=== PATIENT | female | born 1955 | race Caucasian/White ===

== ENCOUNTER → 2018-01-09 | Outpatient (CLI) | payer BC ==
[2018-01-09 11:29] LABS: Basophils % (A) 1 %; Eosinophils # (A) 0.2 k/uL (0-0.7); Eosinophils % (A) 2 %; HCT 43.2 % (34.0-46.0); HGB 14.2 gm/dL (11.4-16.0); Lymphocytes % (A) 14 %; MCH 29.8 pg (25.0-35.0); MCHC 32.9 g/dL (31.0-37.0); MCV 90.7 fL (80.0-100.0); Mean Platelet Volume 6.7; Monocytes # (A) 0.4 k/uL (0-1.0); Monocytes % (A) 6 %; Neutrophils # (A) 5.6 k/uL (1.3-7.7); Neutrophils % (A) 76 %; Platelet Count 266 k/uL (150-450); RBC 4.77 m/uL (3.80-5.40); RDW 12.9 % (11.5-15.5); WBC 7.3 k/uL (3.8-10.6)
[2018-01-09 11:50] LABS: Albumin 4.1 g/dL (3.5-5.0); Calcium 9.8 mg/dL (8.4-10.2); Potassium 4.6 mmol/L (3.5-5.1); Total Bilirubin 0.6 mg/dL (0.2-1.3); Total Protein 6.8 g/dL (6.3-8.2)
== END | disposition home or self-care (01) ==
LOC: LABWHC1 09:24
PROVIDERS: ATTEND Nurse Practitioner Family
DX: E78.2 Mixed hyperlipidemia (principal); Z13.0 Encounter for screening for diseases of the blood and blood-forming organs and certain disorders involving the immune mechanism; Z13.29 Encounter for screening for other suspected endocrine disorder
CPT/HCPCS: 36415; 80053; 80061; 84443; 85025

== ENCOUNTER → 2018-01-31 | Outpatient (CLI) | payer BC ==
--- NOTE | 2018-02-01 12:22 | MM ---
Reason for exam: screening (asymptomatic). Last mammogram was performed 1 year ago. History: Patient is postmenopausal. Family history of breast cancer in maternal grandmother at age 80 and breast cancer in sister at age 46. Benign excisional biopsy of the left breast, May 13, 1999. Took estrogen for 1 year beginning at age 53. Took progesterone for 1 year beginning at age 53. Physical Findings: A clinical breast exam by your physician is recommended on an annual basis and results should be correlated with mammographic findings. MG Screening Mammo w CAD Bilateral CC and MLO view(s) were taken. Prior study comparison: January 24, 2017, bilateral MG screening mammo w CAD. January 07, 2016, bilateral MG 3d screening mammo w/cad. The breast tissue is heterogeneously dense. This may lower the sensitivity of mammography. Benign calcifications in the right breast. No suspicious abnormality. No significant changes when compared with prior studies. ASSESSMENT: Benign, BI-RAD 2 RECOMMENDATION: Routine screening mammogram of both breasts in 1 year.
== END | disposition home or self-care (01) ==
LOC: RADMAMWWP 13:41
PROVIDERS: ATTEND Family Medicine
DX: Z12.31 Encounter for screening mammogram for malignant neoplasm of breast (principal)
CPT/HCPCS: 77067

== ENCOUNTER → 2018-06-27 | Outpatient (CLI) | payer BC | END | disposition home or self-care (01) | LOC: LABWHC1 11:49 | PROVIDERS: ATTEND Podiatrist Foot & Ankle Surgery | DX: Z01.812 Encounter for preprocedural laboratory examination (principal) | CPT/HCPCS: 36415; 82565; 84520 ==

== ENCOUNTER → 2018-06-28 | Outpatient (CLI) | payer BC ==
--- NOTE | 2018-06-28 15:58 | US ---
EXAMINATION TYPE: US extremity nonvasc mass RT DATE OF EXAM: 06/28/2018 COMPARISON: NONE CLINICAL HISTORY: M79.9 Soft tissue disorder, unspecified. hard lump bottom of right foot for 1 year Scanned bottom of right foot within area of concern, hypoechoic area noted = 1.4 x 0.9 x 1.8cm. This appears avascular. This also appears superficial and does not appear to have osseous invasion on ultr asound. No appreciable skin thickening is seen. Despite the avascularity this does appear solid. IMPRESSION: 1.8 cm solid mass is seen at the area of concern within the plantar right foot. This is nonspecific on ultrasound and appears superficial however further anatomic delineation is difficult g iven the submitted images. MRI with and without contrast is recommended characterization and anatomic delineation.
== END ==
LOC: RADUSWWP 12:52
PROVIDERS: ATTEND Podiatrist Foot & Ankle Surgery
DX: R22.41 Localized swelling, mass and lump, right lower limb (principal)

== ENCOUNTER 2018-07-31 11:53 | Day surgery (SDC) | payer BC ==
[~2018-07-31 11:53] MED LIST: DEXAMETHASONE SOD PHOSPHATE 10 MG/ML 1 ML VIAL IV ONE; HYDROmorphone 0.5 MG/0.5 ML SYRINGE IVP PRN; LACTATED RINGERS 1,000 ML IV SCH; LIDOCAINE 1% 20 ML VIAL (10MG/ML) FOR IV START INTRADERMA PRN; MIDAZOLAM 2 MG/2 ML VIAL IV PRN; ONDANSETRON 4 MG/2 ML VIAL IVP ONE; Pre Op ABX Message 1 EACH MISC MISCELLANE ONE; SCOPOLAMINE 1.5MG/72HR PATCH TRANSDERM ONE; fentaNYL (PF) 50 MCG/ML 2 ML AMP IVP PRN
[2018-07-31 12:29] VITALS: RESP 16; TEMP 98.7
[2018-07-31] MEDS ORDERED: KETAMINE 10 MG/ML 20 ML VIAL ONE (13:00)
[2018-07-31] MEDS ORDERED: fentaNYL (PF) 50 MCG/ML 2 ML AMP ONE (13:00)
[2018-07-31] MEDS ORDERED: PROPOFOL 10 MG/ML 20 ML VIAL IV ONE (13:00)
[2018-07-31] MEDS ORDERED: BUPIVACAINE (PF) 0.25% 30 ML VIAL INTRAARTIC ONE (13:02)
--- NOTE | 2018-07-31 14:03 | P.PCN ---
Date of Procedure: 07/31/18 Preoperative Diagnosis: Soft tissue mass subsecond MPJ right foot Postoperative Diagnosis: Same Procedure(s) Performed: Excision of soft tissue mass subsecond MPJ right foot Surgeon: Jordan Frances Indications for Procedure: Painful lesionsoft tissue mass subsecond MPJ right foot Operative Findings: Unremarkable
--- NOTE | 2018-07-31 14:08 | P.OP ---
Date of Procedure: 07/31/18 Preoperative Diagnosis: Soft tissue mass subsecond MPJ right foot Postoperative Diagnosis: Same -- pending path report Procedure(s) Performed: Excision of soft tissue mass subsecond MPJ right foot Anesthesia: MAC Surgeon: Jordan Frances Indications for Procedure: Pain with ambulation and weightbearing from soft tissue mass below the second metatarsal phalangeal joint of the patient's right foot Description of Procedure: On the date of surgery the patient was taken to the operating room in good condition placed on the operating table supine position where an IV was started and adequate IV anesthetic agents were utilized anesthesia was then further supplemented with approximately 9 mL of 0.5% plain Marcaine given in an infiltrative block about the second metatarsal phalangeal joint the plantar aspect of the patient's right foot The patient's right foot were then prepped and draped in usual aseptic manner and over heavy web roll padding an ankle tourniquet was placed above the malleoli of the patient's right ankle The patient's right foot and ankle were then elevated and exsanguinated of blood and after approximately 3 minutes. A time the ankle tourniquet to the right ankle was inflated to approximately 250 mmHg At this time attention was directed to the plantar aspect of the patient's right forefoot where an approximately 4 cm linear incision was made the incision was placed in the first intermetatarsal space at the level of the metatarsal phalangeal joints. Incision was deepened via sharp dissection down through the level of subcutaneous tissue layers all neurovascular structures encountered were identified isolated and were retracted and any bleeding vessels were clamped electrocauterized. Dissection was then carried deep in medially to the soft tissue mass located below the second metatarsal phalangeal joint this was dissected free plantarly and dorsally medially and laterally and excised in total from the surgical site. Soft tissue mass measured approximately 2 cm x 2 cm the surgical site was then flushed with copious amounts sterile saline solution and the surgical site was examined for any remaining portions of the soft tissue mass. When none was seen subcutaneous tissues were coaptated and maintained utilizing 3-0 Vicryl simple interrupted suture was then coaptated and maintained utilizing 4-0 nylon simple interrupted suture. Adaptic Kerlix fluffs four-inch cotton form and 4 inch Coban was used to form a compression dressing and the ankle tourniquet to the patient's right ankle was deflated adequate hemostatic return was seen in all digits the patient's right foot. The patient tolerated the surgery and anesthesia well was taken to the recovery room in good postoperative condition
[2018-07-31 14:30] VITALS: BP 114/69; PULSE 74
== END 2018-07-31 15:02 | disposition home or self-care (01) ==
LOC: OR 11:53
PROVIDERS: ATTEND Podiatrist Foot & Ankle Surgery
DX: L92.8 Other granulomatous disorders of the skin and subcutaneous tissue (principal); E78.5 Hyperlipidemia, unspecified; Z79.899 Other long term (current) drug therapy; Z88.8 Allergy status to other drugs, medicaments and biological substances
CPT/HCPCS: 28039; 88305; 88312; J1100; J2405; J3010; J2704

== ENCOUNTER → 2019-02-19 | Outpatient (CLI) | payer BC ==
--- NOTE | 2019-02-20 09:58 | MM ---
Reason for exam: screening (asymptomatic). Last mammogram was performed 1 year and 1 month ago. History: Patient is postmenopausal. Family history of breast cancer in maternal grandmother at age 80 and breast cancer in sister at age 46. Benign excisional biopsy of the left breast, May 13, 1999. Took estrogen for 1 year beginning at age 53. Took progesterone for 1 year beginning at age 53. Physical Findings: A clinical breast exam by your physician is recommended on an annual basis and results should be correlated with mammographic findings. MG Screening Mammo w CAD Bilateral CC and MLO view(s) were taken. Prior study comparison: January 31, 2018, bilateral MG screening mammo w CAD. January 24, 2017, bilateral MG screening mammo w CAD. The breast tissue is heterogeneously dense. This may lower the sensitivity of mammography. Stable benign calcifications. There is no discrete abnormality. No significant changes when compared with prior studies. ASSESSMENT: Benign, BI-RAD 2 RECOMMENDATION: Routine screening mammogram of both breasts in 1 year.
== END | disposition home or self-care (01) ==
LOC: RADMAMWWP 07:43
PROVIDERS: ATTEND Nurse Practitioner Family
DX: Z12.31 Encounter for screening mammogram for malignant neoplasm of breast (principal)
CPT/HCPCS: 77067

== ENCOUNTER 2019-12-22 03:00 | Observation (INO) | payer MEDICARE, BC ==
[2019-12-22] MEDS ORDERED: ONDANSETRON 4 MG/2 ML VIAL IVP STA (03:27)
[2019-12-22] MEDS ORDERED: MORPHINE SULFATE 4 MG/ML SYRINGE IV STA (03:27)
[2019-12-22] MEDS ORDERED: SODIUM CHLORIDE 0.9% 1,000 ML IV STA (03:27)
[2019-12-22 03:39] LABS: Basophils # (A) 0.1 k/uL (0-0.2); Basophils % (A) 1 %; Eosinophils # (A) 0.1 k/uL (0-0.7); Eosinophils % (A) 1 %; HGB 14.5 gm/dL (11.4-16.0); Lymphocytes # (A) 1.4 k/uL (1.0-4.8); Lymphocytes % (A) 11 %; MCH 29.7 pg (25.0-35.0); MCHC 32.3 g/dL (31.0-37.0); MCV 92.1 fL (80.0-100.0); Mean Platelet Volume 7.3; Monocytes # (A) 0.6 k/uL (0-1.0); Monocytes % (A) 4 %; Neutrophils # (A) 10.2 k/uL (1.3-7.7); Neutrophils % (A) 82 %; Platelet Count 295 k/uL (150-450); RBC 4.89 m/uL (3.80-5.40); WBC 12.4 k/uL (3.8-10.6)
[2019-12-22 03:50] LABS: Albumin 4.3 g/dL (3.5-5.0); Calcium 9.7 mg/dL (8.4-10.2); Total Bilirubin 0.6 mg/dL (0.2-1.3); Total Protein 6.9 g/dL (6.3-8.2)
[2019-12-22 04:20] LABS: Amorphous Sediment,Urine Rare /hpf; Appearance,Urine Turbid (Clear); Bacteria,Urine Rare /hpf; Bilirubin,Urine Negative (Negative); Blood,Urine Negative (Negative); Color,Urine Light Yellow; Glucose,Urine (UA) Negative (Negative); Ketones,Urine Negative (Negative); Leukocyte Esterase,Urine Negative (Negative); Mucus,Urine Rare /hpf; Nitrite,Urine Negative (Negative); PH, Urine 7.5 (5.0-8.0); Protein,Urine Negative (Negative); RBC,Urine <1 /hpf (0-5); Specific Gravity,Urine 1.014 (1.001-1.035); Urobilinogen,Urine <2.0 mg/dL (<2.0); WBC,Urine 2 /hpf (0-5)
--- NOTE | 2019-12-22 05:29 | CT ---
EXAMINATION TYPE: CT abdomen pelvis w con DATE OF EXAM: 12/22/2019 COMPARISON: None HISTORY: epigastric pain CT DLP: 876.7 mGycm Automated exposure control for dose reduction was used. CONTRAST: Performed with IV Contrast, patient injected with 100 mL of Isovue 300. Lung bases are clear. There is no pleural effusion. Heart appears normal. There is no pericardial eff usion. Liver and spleen appear intact. Bile ducts are not dilated. There is 2 cm calcified gallstone. Gallbl adder is mildly distended. Gallstone is at the gallbladder neck. There is no evidence of pancreatic m ass. Stomach is intact. There is no adrenal mass. Kidneys show satisfactory contrast opacification. There is no hydronephrosi s. There is 2 cm cortical cyst lower pole left kidney. The delayed images show normal renal excretion . There is no retroperitoneal adenopathy. Appendix is posterior and appears normal. Bladder distends smoothly. There is small inguinal hernias that contain fat. Uterus is retroverted. There is no pelvic mass. There is no free fluid in the pelvis. There is no mesenteric edema. There is no ascites or free air. There is no bowel obstruction. The lum bar vertebra have normal spacing and alignment. Posterior elements are intact. Bony pelvis is intact. IMPRESSION: Normal appendix. Large single gallstone in the gallbladder neck. Distended gallbladder measures up to 3 cm in diameter . Cholecystitis is possible.
[2019-12-22] MEDS ORDERED: ONDANSETRON 4 MG/2 ML VIAL IVP PRN (05:39)
[2019-12-22] MEDS ORDERED: HYDROmorphone 0.5 MG/0.5 ML SYRINGE IVP PRN (05:39)
[2019-12-22] MEDS ORDERED: NALOXONE 0.4 MG/ML 1 ML VIAL IV PRN ×2 (05:39→15:27)
[2019-12-22] MEDS ORDERED: MORPHINE SULFATE 4 MG/ML SYRINGE IV PRN (05:39)
--- NOTE | 2019-12-22 05:48 | ED ---
General Adult HPI - General Chief complaint: Back Pain/Injury Stated complaint: lower back pain Time Seen by Provider: 12/22/19 03:02 Source: patient Mode of arrival: ambulatory Limitations: no limitations - History of Present Illness Initial comments: Abbey is a pleasant previously healthy 64-year-old female who presents the ER today for evaluation of epigastric and flank pain. Patient reports that she was in her usual state of health throughout the day yesterday. She ate a big dinner and approximately 2 hours later developed pain that was in the epigastrium right upper quadrant right flank. Pain is associated with nausea but no vomiting no change in bowel or bladder habits. Patient reports she's had episodes of this pain multiple times in the past but they usually resolve this one has persisted which prompted her visit to the ER. Patient denies any previous abdominal surgery states she still has her gallbladder and appendix. - Related Data Home Medications Medication Instructions Recorded Confirmed Biotin 1 tab PO DAILY 07/29/18 07/31/18 Calcium Carbonate [Calcium] 1,200 mg PO DAILY 07/29/18 07/31/18 Fenofibrate Nanocrystallized 145 mg PO QAM 07/29/18 07/31/18 [Fenofibrate] Multivitamins, Thera [Multivitamin 1 tab PO DAILY 07/29/18 07/29/18 (formulary)] Allergies Allergy/AdvReac Type Severity Reaction Status Date / Time No Known Allergies Allergy Verified 12/22/19 03:08 Review of Systems ROS Statement: Those systems with pertinent positive or pertinent negative responses have been documented in the HPI. ROS Other: All systems not noted in ROS Statement are negative. Past Medical History Past Medical History: Hyperlipidemia Additional Past Medical History / Comment(s): CYST ON RIGHT FOOT, PAINFUL TO WALK. History of Any Multi-Drug Resistant Organisms: None Reported Past Surgical History: Orthopedic Surgery, Tonsillectomy, Tubal Ligation Additional Past Surgical History / Comment(s): CYSTS REMOVED FROM BOTH FEET IN THE PAST. LASER EYE SURGERY (BEGINNINGS OF GLAUCOMA). Past Anesthesia/Blood Transfusion Reactions: No Reported Reaction Past Psychological History: No Psychological Hx Reported Smoking Status: Never smoker Past Alcohol Use History: Occasional Past Drug Use History: None Reported - Past Family History Son(s) Family Medical History: Deep Vein Thrombosis (DVT) Sister(s) Family Medical History: Cancer General Exam - General Exam Comments Initial Comments: Physical Exam GENERAL: Patient is well-developed and well-nourished. Patient is nontoxic and well-hydrated and is in no distress. HENT: Normocephalic, Atraumatic. EYES: PERRL, EOMI PULMONARY: Unlabored respirations. CARDIOVASCULAR: RRR Warm and well perfused extremities ABDOMEN: Mild tenderness to palpation in the epigastrium, tenderness to palpation of the right upper quadrant No tenderness to percussion of the flanks bilaterally SKIN: No rashes or bruising : Deferred NEUROLOGIC: Alert and oriented Normal speech Normal gait MUSCULOSKELETAL: Moving all extremities with no apparent injury PSYCHIATRIC: No SI/HI Limitations: no limitations Course Vital Signs 12/22/19 12/22/19 03:03 05:02 Temperature 97.7 F Pulse Rate 76 68 Respiratory 16 16 Rate Blood Pressure 155/64 150/67 O2 Sat by Pulse 96 98 Oximetry Medical Decision Making - Medical Decision Making The patient was seen and evaluated, history was obtained from the patient Mrs. 64-year-old female who repeatedly complains of epigastric and back pain however on exam seems most tender in the right upper quadrant and epigastrium Labs were ordered and resulted with mild leukocytosis, mild elevation of liver enzymes, computed tomography scan was ordered and resulted with evidence of a very large gallstone in the gallbladder neck and mild thickening of the gallbladder, patient will be treated with Zosyn cholecystitis Patient care was discussed with Dr. Chung who accepts the admission, agrees with pain management antiemetics and [id number] antibiotics - Lab Data Result diagrams: 12/22/19 03:32 12/22/19 03:32 Lab Results 12/22/19 12/22/19 12/22/19 Range/Units 03:32 03:32 03:32 WBC 12.4 H (3.8-10.6) k/uL RBC 4.89 (3.80-5.40) m/uL Hgb 14.5 (11.4-16.0) gm/dL Hct 45.0 (34.0-46.0) % MCV 92.1 (80.0-100.0) fL MCH 29.7 (25.0-35.0) pg MCHC 32.3 (31.0-37.0) g/dL RDW 13.0 (11.5-15.5) % Plt Count 295 (150-450) k/uL Neutrophils % 82 % Lymphocytes % 11 % Monocytes % 4 % Eosinophils % 1 % Basophils % 1 % Neutrophils # 10.2 H (1.3-7.7) k/uL Lymphocytes # 1.4 (1.0-4.8) k/uL Monocytes # 0.6 (0-1.0) k/uL Eosinophils # 0.1 (0-0.7) k/uL Basophils # 0.1 (0-0.2) k/uL Sodium 136 L (137-145) mmol/L Potassium 5.0 (3.5-5.1) mmol/L Chloride 104 (98-107) mmol/L Carbon Dioxide 25 (22-30) mmol/L Anion Gap 7 mmol/L BUN 13 (7-17) mg/dL Creatinine 0.84 (0.52-1.04) mg/dL Est GFR (CKD-EPI)AfAm 84 (>60 ml/min/1.73 sqM) Est GFR (CKD-EPI)NonAf 73 (>60 ml/min/1.73 sqM) Glucose 162 H (74-99) mg/dL Calcium 9.7 (8.4-10.2) mg/dL Total Bilirubin 0.6 (0.2-1.3) mg/dL AST 45 H (14-36) U/L ALT 31 (4-34) U/L Alkaline Phosphatase 66 (38-126) U/L Total Protein 6.9 (6.3-8.2) g/dL Albumin 4.3 (3.5-5.0) g/dL Lipase 164 (23-300) U/L Urine Color Light Yellow Urine Appearance Turbid H (Clear) Urine pH 7.5 (5.0-8.0) Ur Specific Sheldon 1.014 (1.001-1.035) Urine Protein Negative (Negative) Urine Glucose (UA) Negative (Negative) Urine Ketones Negative (Negative) Urine Blood Negative (Negative) Urine Nitrite Negative (Negative) Urine Bilirubin Negative (Negative) Urine Urobilinogen <2.0 (<2.0) mg/dL Ur Leukocyte Esterase Negative (Negative) Urine RBC <1 (0-5) /hpf Urine WBC 2 (0-5) /hpf Amorphous Sediment Rare H (None) /hpf Urine Bacteria Rare H (None) /hpf Urine Mucus Rare H (None) /hpf Disposition Clinical Impression: Impacted gallstone of gallbladder, Cholecystitis Disposition: ADMITTED IP TO THIS HOSP Condition: Stable Is patient prescribed a controlled substance at d/c from ED?: No Referrals: Ekta Mauro III, MD [Primary Care Provider] - 1-2 days
[2019-12-22] MEDS: SODIUM CHLORIDE 0.9% 1,000 ML IV SCH ×2 (05:59→16:34)
[2019-12-22] MEDS ORDERED: PIPERACILLIN-TAZOBACTAM 3.375 GM in SODIUM CHLORIDE 0.9% 100 ML IVPB SCH (06:00)
[2019-12-22] MEDS: PIPERACILLIN-TAZOBACTAM 3.375 GM in SODIUM CHLORIDE 0.9% 100 ML IVPB SCH ×3 (06:42→23:54)
--- NOTE | 2019-12-22 10:30 | P.GSHP ---
History of Present Illness H&P Date: 12/22/19 CHIEF COMPLAINT: Abdominal pain HISTORY OF PRESENT ILLNESS: This is a 64-year-old female with a known past medical history of hyperlipidemia. She presented to the emergency room with complaints of epigastric abdominal pain and lower back flank pain bilaterally. Patient reports symptoms started around 7:30 last night. She reports the pain as sharp. She does admit to having some nausea and vomiting. The emesis did contain bile. She's been afebrile. Computed tomography scan of abdomen and p buddy reported large single gallstone in the gallbladder neck. Distended gallbladder measuring up to 3 cm in diameter. Patient reports regular bowel movements. Denies any fever, chills or sweats. Patient reports that this is the third time she has had these symptoms. She has not had any further workup or treatment in the past for these symptoms. PAST MEDICAL HISTORY: See list. PAST SURGICAL HISTORY: See list. MEDICATIONS: See list. ALLERGIES: See list. SOCIAL HISTORY: No illicit drug use. REVIEW OF SYSTEMS: CONSTITUTIONAL: Denies fever or chills. HEENT: Denies blurred vision, vision changes, or eye pain. Denies hemoptysis ENDOCRINE: Denies heat or cold intolerance. CARDIOVASCULAR: Denies chest pain or pressure. RESPIRATORY: No shortness of breath. GASTROINTESTINAL: Denies abdominal pain. Denies nausea or vomiting. NEURO: Denies history of seizures. PSYCH: No depression or suicidal ideation HEMATOLOGIC: Denies bleeding disorders. LYMPHATIC: The patient denies any lumps and bumps around the neck. GENITOURINARY: Denies any blood in urine or increased urinary frequency. MUSCULOSKELETAL: Denies myalgias. Denies joint swelling. Denies decreased range of motion beyond patients baseline. SKIN: Denies pruitis. Denies rash. PHYSICAL EXAM: VITAL SIGNS: Reviewed GENERAL: Well-developed in no acute distress. HEENT: No sclera icterus. Extraocular movements grossly intact. Moist buccal mucosa. Head is atraumatic, normocephalic. Hears conversational speech. No nasal drainage. NECK: Supple without lymphadenopathy. CHEST: Non-labored respirations and equal bilateral excursions. CARDIOVASCULAR: Palpable 2+ radial pulses. ABDOMEN: Soft. Nondistended. Nontender MUSCULOSKELETAL: No clubbing or cyanosis. NEUROLOGIC: No focal or lateralizing signs. Cranial nerves II through XII grossly intact. PSYCH: Appropriate affect. Alert and oriented to person, place and time. SKIN: Well perfused. Good skin turgor. LABORATORY DATA: WBC 12.4 hemoglobin 14.5 AST 45 ALT 31 lipase 164 UA negative for infection IMAGING: Computed tomography scan abdomen and pelvis report states normal appendix. Large single gallstone in the gallbladder neck. Distended gallbladder measuring up to 3 cm in diameter. Cholecystitis is possible ASSESSMENT: 1. Acute cholecystitis 2. Hyperlipidemia PLAN: -Plan to proceed with robotic cholecystectomy with Dr. Chung today -Keep patient nothing by mouth -Continue IV fluids -Continue IV antibiotics -Continue pain medication as needed -Continue Zofran as needed for nausea and vomiting Physician Computational [employer] Professor note has been reviewed by physician. Signing provider agrees with the documented findings, assessment, and plan of care. Past Medical History Past Medical History: Hyperlipidemia Additional Past Medical History / Comment(s): CYST ON RIGHT FOOT, PAINFUL TO WALK. History of Any Multi-Drug Resistant Organisms: None Reported Past Surgical History: Orthopedic Surgery, Tonsillectomy, Tubal Ligation Additional Past Surgical History / Comment(s): CYSTS REMOVED FROM BOTH FEET IN THE PAST. LASER EYE SURGERY (BEGINNINGS OF GLAUCOMA). Past Anesthesia/Blood Transfusion Reactions: No Reported Reaction Past Psychological History: No Psychological Hx Reported Smoking Status: Never smoker Past Alcohol Use History: Occasional Past Drug Use History: None Reported - Past Family History Son(s) Family Medical History: Deep Vein Thrombosis (DVT) Sister(s) Family Medical History: Cancer Medications and Allergies Home Medications Medication Instructions Recorded Confirmed Type Biotin 5 mg PO DAILY 07/29/18 12/22/19 History Calcium Carbonate [Calcium] 1,200 mg PO DAILY 07/29/18 12/22/19 History Fenofibrate Nanocrystallized 145 mg PO DAILY 07/29/18 12/22/19 History [Fenofibrate] Multivitamins, Thera [Multivitamin 1 tab PO DAILY 07/29/18 12/22/19 History (formulary)] Acetaminophen Tab [Tylenol Tab] 650 mg PO Q4H PRN #30 tablet 12/23/19 Rx Ibuprofen [Motrin] 600 mg PO Q8HR PRN #30 tab 12/23/19 Rx Allergies Allergy/AdvReac Type Severity Reaction Status Date / Time No Known Allergies Allergy Verified 12/22/19 07:00 Surgical - Exam Vital Signs Temp Pulse Resp BP Pulse Ox 97.7 F 76 16 155/64 96 12/22/19 03:03 12/22/19 03:03 12/22/19 03:03 12/22/19 03:03 12/22/19 03:03 Results - Labs 12/23/19 08:20 12/23/19 08:20 Abnormal Lab Results - Last 24 Hours (Table) 12/22/19 12/22/19 12/22/19 Range/Units 03:32 03:32 03:32 WBC 12.4 H (3.8-10.6) k/uL Neutrophils # 10.2 H (1.3-7.7) k/uL Sodium 136 L (137-145) mmol/L Glucose 162 H (74-99) mg/dL AST 45 H (14-36) U/L Urine Appearance Turbid H (Clear) Amorphous Sediment Rare H (None) /hpf Urine Bacteria Rare H (None) /hpf Urine Mucus Rare H (None) /hpf Diabetes panel 12/22/19 Range/Units 03:32 Sodium 136 L (137-145) mmol/L Potassium 5.0 (3.5-5.1) mmol/L Chloride 104 (98-107) mmol/L Carbon Dioxide 25 (22-30) mmol/L BUN 13 (7-17) mg/dL Creatinine 0.84 (0.52-1.04) mg/dL Glucose 162 H (74-99) mg/dL Calcium 9.7 (8.4-10.2) mg/dL AST 45 H (14-36) U/L ALT 31 (4-34) U/L Alkaline Phosphatase 66 (38-126) U/L Total Protein 6.9 (6.3-8.2) g/dL Albumin 4.3 (3.5-5.0) g/dL Calcium panel 12/22/19 Range/Units 03:32 Calcium 9.7 (8.4-10.2) mg/dL Albumin 4.3 (3.5-5.0) g/dL Pituitary panel 12/22/19 Range/Units 03:32 Sodium 136 L (137-145) mmol/L Potassium 5.0 (3.5-5.1) mmol/L Chloride 104 (98-107) mmol/L Carbon Dioxide 25 (22-30) mmol/L BUN 13 (7-17) mg/dL Creatinine 0.84 (0.52-1.04) mg/dL Glucose 162 H (74-99) mg/dL Calcium 9.7 (8.4-10.2) mg/dL Adrenal panel 12/22/19 Range/Units 03:32 Sodium 136 L (137-145) mmol/L Potassium 5.0 (3.5-5.1) mmol/L Chloride 104 (98-107) mmol/L Carbon Dioxide 25 (22-30) mmol/L BUN 13 (7-17) mg/dL Creatinine 0.84 (0.52-1.04) mg/dL Glucose 162 H (74-99) mg/dL Calcium 9.7 (8.4-10.2) mg/dL Total Bilirubin 0.6 (0.2-1.3) mg/dL AST 45 H (14-36) U/L ALT 31 (4-34) U/L Alkaline Phosphatase 66 (38-126) U/L Total Protein 6.9 (6.3-8.2) g/dL Albumin 4.3 (3.5-5.0) g/dL
[2019-12-22] MEDS ORDERED: INDOCYANINE GREEN 25 MG VIAL IV STA (12:34)
[2019-12-22] MEDS ORDERED: HEPARIN SODIUM,PORCINE 5,000 UNIT/ML 1 ML VIAL SQ STA (12:34)
--- NOTE | 2019-12-22 12:34 | P.HPADDEND ---
H&P Addendum H&P Addendum Date: 12/22/19 Patient seen and evaluated. CT of the abdomen and pelvis reviewed demonstrating large 3 cm gallstone in neck of gallbladder. Patient presents with acute cholecystitis. Benefits and risks of robotic cholecystectomy described. We'll proceed with cholecystectomy.
[2019-12-22] MEDS ORDERED: IV FLUID CONTINUATION 1,000 ML IV ONE (13:20)
[2019-12-22] MEDS ORDERED: ONDANSETRON 4 MG/2 ML VIAL IVP ONE (13:35)
[2019-12-22] MEDS ORDERED: DEXAMETHASONE SOD PHOSPHATE 10 MG/ML 1 ML VIAL IV ONE (13:35)
[2019-12-22] MEDS ORDERED: LIDOCAINE 1% INJ 10MG/ML (20 ML MDV) ONE (14:17)
[2019-12-22] MEDS ORDERED: MIDAZOLAM 2 MG/2 ML VIAL ONE (14:17)
[2019-12-22] MEDS ORDERED: PROPOFOL 10 MG/ML 20 ML VIAL IV ONE (14:17)
[2019-12-22] MEDS ORDERED: HYDROmorphone (PF) 1 MG/ML ONE (14:17)
[2019-12-22] MEDS ORDERED: ROCURONIUM BROMIDE 10 MG/ML 5 ML VIAL IV ONE (14:17)
[2019-12-22] MEDS ORDERED: fentaNYL (PF) 50 MCG/ML 2 ML AMP ONE (14:17)
[2019-12-22] MEDS ORDERED: NEOSTIGMINE 1 MG/ML 10 ML VIAL ONE (14:17)
[2019-12-22] MEDS ORDERED: SUCCINYLCHOLINE CHLORIDE 100 MG/5 ML SYR IV ONE (14:17)
[2019-12-22] MEDS ORDERED: GLYCOPYRROLATE 0.2 MG/ML 2 ML VIAL ONE (14:17)
[2019-12-22] MEDS ORDERED: LIDOCAINE 1%-EPI 1:100,000 20 ML VIAL SQ ONE (14:34)
[2019-12-22] MEDS ORDERED: ACETAMINOPHEN IV (For NPO) 1,000 MG in EMPTY BAG 1 BAG IVPB ONE (15:27)
[2019-12-22] MEDS ORDERED: METOCLOPRAMIDE 5 MG/ML 2 ML VIAL IVP PRN (15:27)
--- NOTE | 2019-12-22 15:38 | P.OP ---
Date of Procedure: 12/22/19 Description of Procedure: SURGEON: CASTRO PRIEST MD PREOPERATIVE DIAGNOSES: 1. Acute cholecystitis POSTOPERATIVE DIAGNOSES: 1. Acute cholecystitis 2. Fatty liver disease OPERATION: 1. Robotic-assisted da Chucky Xi laparoscopic lysis of adhesions 2. Robotic-assisted da Chucky Xi laparoscopic cholecystectomy, multiport with FIREFLY ESTIMATED BLOOD LOSS: 10 mL. SPECIMENS REMOVED: Gallbladder. COMPLICATIONS: None. OPERATIVE FINDINGS: 1. Dense peritoneal adhesions pericholecystic requiring over 30 minutes lysis of adhesions INDICATIONS: The patient is a 64-year-old female who presents with symptomatic gallstones. Robotic assisted laparoscopic approach was described. Benefits and risks of the procedure including but not limited to bleeding, infection, injury to the biliary tree was described. Informed consent was obtained. DESCRIPTION OF PROCEDURE: Patient was brought to the operating room, placed in supine position. After general induction, the abdomen had been prepped and draped in standard sterile fashion. The robotic da Chucky XI system was primed. After a timeout protocol was performed, the patient had been prepped and draped in standard sterile fashion. The patient was injected with indocyanine green. A 5 mm 0 degrees laparoscopic trocar entry was performed along the left upper quadrant. The abdomen insufflated to 15 mmHg pressure which was tolerated well. Diagnostic laparoscopy demonstrated no injury to bowel viscera or mesentery. Moderate adhesions were identified along the right upper quadrant at the gallbladder infundibulum and cystic structures. No inguinal hernias were identified. The liver surface was unremarkable. Next, two 8 mm robotic ports were placed along the right upper abdomen. The camera 8-mm port was maintained along the epigastrium. Another 8 mm port was placed along the left upper abdominal wall after exchanging the 5 mm port. Please note that the ports were placed at least 10 to 15 cm away from the target anatomy of the gallbladder. The robot was docked along the left lateral abdomen. The patient was repositioned in reverse Trendelenburg position. Using a grasper for arm 3, a grasper for arm 4, including hook cautery for arm 1, the robotic system was docked and primed as described. Instruments were interchanged by the export sales assistant including hook cautery, Bovie cautery and clip appliers. I had sat at the console. Adhesions were found along the falciform ligament including at the gallbladder infundibulum which were lysed for 30 minutes. Cystic lymph node was also calcified with adhesion and dissected from the cystic structure. The gallbladder was moderately distended requiring dome down technique. The right liver edge was gently retracted superiorly using gauze. The gallbladder was removed from the hepatic fossa using hook cautery. The liver bed was hemostatic. Next, attention was brought to the infundibulum with moderate fatty tissue identified. The serosa was dissected carefully down to the cystic duct and infundibulum. FIREFLY was used to identify the cystic artery and cystic structures. A critical view of safety was obtained. Large PLASTIC clips were used throughout the entire case. Using a clip flat machine cutter, 2 clips were placed at the junction of the infundibulum and cystic duct. The cystic duct was divided between clips. Next, the cystic artery was similarly clipped and cauterized. Electro-Bovie cautery was used to remove the gallbladder from the hepatic fossa. Hemostasis was checked and found to be adequate. The robot was undocked. I re-scrubbed into the case. Using a 10 mm Endo Catch bag via the left upper quadrant incision, the specimen was removed from the abdominal cavity. All pneumoperitoneum instruments were evacuated from the abdominal cavity. The incisions were reapproximated using 4-0 Monocryl in an interrupted subcuticular fashion. Fascial defects were less than 8 mm in size. Please note along the trocar sites, local anesthetic was placed as a field block prior to insertion of all instruments. Liquid glue was applied to the skin. At the end of the procedure needle, sponge, and instrument count had been verified correct by the surgical nurse practitioner. The patient was transferred to postanesthesia care unit in stable condition. Intraoperative films were shared with the patient's family. Plan - Discharge Summary Discharge Rx Participant: No New Discharge Prescriptions: No Action Multivitamins, Thera [Multivitamin (formulary)] 1 tab PO DAILY Fenofibrate Nanocrystallized [Fenofibrate] 145 mg PO DAILY Calcium Carbonate [Calcium] 1,200 mg PO DAILY Biotin 5 mg PO DAILY Discharge Medication List Biotin 5 mg PO DAILY 07/29/18 [History] Calcium Carbonate [Calcium] 1,200 mg PO DAILY 07/29/18 [History] Fenofibrate Nanocrystallized [Fenofibrate] 145 mg PO DAILY 07/29/18 [History] Multivitamins, Thera [Multivitamin (formulary)] 1 tab PO DAILY 07/29/18 [History] Follow up Appointment(s)/Referral(s): Ekta Mauro III, MD [Primary Care Provider] - 1-2 days
[2019-12-22] MEDS ORDERED: HYDROmorphone 1 MG/ML 1 ML SYRINGE IVP ONE (15:46)
[2019-12-22] MEDS: ACETAMINOPHEN TAB 325 MG TAB PO SCH (17:51)
[2019-12-22] MEDS: KETOROLAC 15 MG/ML 1 ML VIAL IVP SCH ×2 (18:05→23:54)
--- NOTE | 2019-12-22 18:37 | P.PN ---
Progress Note - Text Progress Note Date: 12/22/19 She is lethargic after surgery with mild nausea. She is yet to void. Will re- evaluated for discharge tomorrow for acute cholecystitis.
[2019-12-23] MEDS: SODIUM CHLORIDE 0.9% 1,000 ML IV SCH ×2 (00:05→05:19)
[2019-12-23] MEDS: ACETAMINOPHEN TAB 325 MG TAB PO SCH ×3 (00:06→08:05)
[2019-12-23] MEDS: KETOROLAC 15 MG/ML 1 ML VIAL IVP SCH (06:45)
[2019-12-23] MEDS: PIPERACILLIN-TAZOBACTAM 3.375 GM in SODIUM CHLORIDE 0.9% 100 ML IVPB SCH (06:46)
[2019-12-23 07:59] VITALS: BP 114/71; PULSE 75; RESP 16; TEMP 98
[2019-12-23 08:35] LABS: Basophils % (A) 1 %; Eosinophils # (A) 0.1 k/uL (0-0.7); Eosinophils % (A) 2 %; HCT 37.4 % (34.0-46.0); HGB 12.1 gm/dL (11.4-16.0); Lymphocytes # (A) 1.3 k/uL (1.0-4.8); Lymphocytes % (A) 24 %; MCH 30.2 pg (25.0-35.0); MCHC 32.3 g/dL (31.0-37.0); MCV 93.5 fL (80.0-100.0); Mean Platelet Volume 7.1; Monocytes # (A) 0.2 k/uL (0-1.0); Monocytes % (A) 4 %; Neutrophils # (A) 3.8 k/uL (1.3-7.7); Neutrophils % (A) 68 %; Platelet Count 226 k/uL (150-450); RDW 12.7 % (11.5-15.5); WBC 5.6 k/uL (3.8-10.6)
[2019-12-23 08:48] LABS: Albumin 3.4 g/dL (3.5-5.0); Calcium 8.6 mg/dL (8.4-10.2); Potassium 3.8 mmol/L (3.5-5.1); Total Bilirubin 0.5 mg/dL (0.2-1.3); Total Protein 5.6 g/dL (6.3-8.2)
[2019-12-23] MEDS ORDERED: PANTOPRAZOLE 40 MG/10 ML VIAL IV SCH (09:00)
[2019-12-23] MEDS ORDERED: ENOXAPARIN 30 MG/0.3 ML SYRINGE SQ SCH (09:00)
--- NOTE | 2019-12-23 14:13 | P.DS ---
Providers Date of admission: 12/22/19 05:40 Expected date of discharge: 12/23/19 Attending physician: Ernestina Chung Primary care physician: Ekta Mauro Hospital Course: Discharge diagnosis 1. Acute cholecystitis 2. Fatty liver disease Hospital course This is a 64-year-old female that presented to the emergency room with complaints of epigastric abdominal pain and lower back flank pain bilaterally. She does admit to having some nausea and vomiting. Computed tomography scan of abdomen and pelvis reported large single gallstone in the gallbladder neck. Distended gallbladder measuring up to 3 cm in diameter. Patient is status post Robotic-assisted da Chucky Xi laparoscopic lysis of adhesions and Robotic- assisted da Chucky Xi laparoscopic cholecystectomy. Patient has been up and ambulating. She has tolerated diet. She is afebrile. Her pain is controlled. She has passed gas. Denies any nausea or vomiting. She is stable for discharge. Physician Photocopying Equipment Mechanic note has been reviewed by physician. Signing provider agrees with the documented findings, assessment, and plan of care. Patient Condition at Discharge: Stable Plan - Discharge Summary Discharge Rx Participant: No New Discharge Prescriptions: New Ibuprofen [Motrin] 600 mg PO Q8HR PRN #30 tab PRN Reason: Pain Acetaminophen Tab [Tylenol Tab] 650 mg PO Q4H PRN #30 tablet PRN Reason: Pain Continue Multivitamins, Thera [Multivitamin (formulary)] 1 tab PO DAILY Fenofibrate Nanocrystallized [Fenofibrate] 145 mg PO DAILY Calcium Carbonate [Calcium] 1,200 mg PO DAILY Biotin 5 mg PO DAILY Discharge Medication List Biotin 5 mg PO DAILY 07/29/18 [History] Calcium Carbonate [Calcium] 1,200 mg PO DAILY 07/29/18 [History] Fenofibrate Nanocrystallized [Fenofibrate] 145 mg PO DAILY 07/29/18 [History] Multivitamins, Thera [Multivitamin (formulary)] 1 tab PO DAILY 07/29/18 [History] Acetaminophen Tab [Tylenol Tab] 650 mg PO Q4H PRN #30 tablet 12/23/19 [Rx] Ibuprofen [Motrin] 600 mg PO Q8HR PRN #30 tab 12/23/19 [Rx] Follow up Appointment(s)/Referral(s): Ekta Mauro III, MD [Primary Care Provider] - 12/25/19 11:00 am (With Daisha Carrion NP) Ernestina Chung MD [STAFF PHYSICIAN] - 12/25/19 2:00 pm Patient Instructions/Handouts: *Surgery [facility] - Laparoscopic Cholecystectomy Discharge Instructions Activity/Diet/Wound Care/Special Instructions: Diet: low fat No lifting over 10 pounds until Jan.04 You may shower. No soaking or tub baths until Jan.04 Very light activity until you are reevaluated at your follow up appointment with your surgeon Discharge Disposition: HOME SELF-CARE
== END 2019-12-23 12:38 | disposition home or self-care (01) ==
LOC: EC 03:00 → 1SOBS 05:40
PROVIDERS: ADMIT Surgery Plastic and Reconstructive Surgery; ATTEND Surgery Plastic and Reconstructive Surgery
DX: K80.00 Calculus of gallbladder with acute cholecystitis without obstruction (principal); K82.8 Other specified diseases of gallbladder; K76.0 Fatty (change of) liver, not elsewhere classified; K66.0 Peritoneal adhesions (postprocedural) (postinfection); E78.5 Hyperlipidemia, unspecified; R11.0 Nausea
CPT/HCPCS: 47562; 49329; 93005; 96361; 96374; 96375; 99285; 36415; 88304; 80053 ×2; 83690; 85025 ×2; 81001; 74177; G0378 ×2; J2543 ×2; J2250; J2270; J1644; J1100; J2710; J0690; J2405; J2001; J3010; J1650; J1170 ×2; J1885 ×2; J0330; J2704; C9113; Q9967

== ENCOUNTER → 2020-03-03 | Outpatient (CLI) | payer MEDICARE, BC ==
--- NOTE | 2020-03-04 09:48 | MM ---
Reason for exam: screening (asymptomatic). Last mammogram was performed 1 year ago. History: Patient is postmenopausal. Family history of breast cancer in maternal grandmother at age 80 and breast cancer in sister at age 46. Benign excisional biopsy of the left breast, May 13, 1999. Took estrogen for 1 year beginning at age 53. Took progesterone for 1 year beginning at age 53. Physical Findings: A clinical breast exam by your physician is recommended on an annual basis and results should be correlated with mammographic findings. MG 3D Screening Mammo W/Cad Bilateral CC and MLO view(s) were taken. Prior study comparison: February 19, 2019, bilateral MG screening mammo w CAD. January 31, 2018, bilateral MG screening mammo w CAD. The breast tissue is heterogeneously dense. This may lower the sensitivity of mammography. Finding #1: There is a 9 mm obscured oval mass located 5-6 cm from the nipple in the lower quadrant, anterior, middle position of the right breast CC 16/66 and MLO 28/68. Finding #2: There are typically benign round calcifications in the right breast. New finding since February 19, 2019 and January 31, 2018. ASSESSMENT: Incomplete: need additional imaging evaluation, BI-RAD 0 RECOMMENDATION: Ultrasound of the right breast. [facility] will attempt to contact patient to return for ultrasound.
== END | disposition home or self-care (01) ==
LOC: RADMAMWWP 08:33
PROVIDERS: ATTEND Family Medicine
DX: Z12.31 Encounter for screening mammogram for malignant neoplasm of breast (principal)
CPT/HCPCS: 77063; 77067

== ENCOUNTER → 2020-03-05 | Outpatient (CLI) | payer MEDICARE, BC ==
--- NOTE | 2020-03-05 12:09 | USB ---
Reason for exam: additional evaluation requested from abnormal screening. History: Patient is postmenopausal. Family history of breast cancer in maternal grandmother at age 80 and breast cancer in sister at age 46. Benign excisional biopsy of the left breast, May 13, 1999. Took estrogen for 1 year beginning at age 53. Took progesterone for 1 year beginning at age 53. Physical Findings: Nurse did not find any significant physical abnormalities on exam. US Breast Workup Limited RT Technologist: Rosalinda Herndon Right limited breast ultrasound including focal area of concern, retroareolar and axilla demonstrates a 0.4 x 0.5 x 0.3cm cystic lesion at 4 o'clock and a 0.3 x 0.3 x 0.3cm circular lesion too small to characterize at 8 o'clock. These results were verbally communicated with the patient and result sheet given to the patient on 03/05/20. ASSESSMENT: Probably benign, BI-RAD 3 RECOMMENDATION: Follow-up diagnostic mammogram and ultrasound of the right breast in 6 months.
== END | disposition home or self-care (01) ==
LOC: RADUSWWP 09:30
PROVIDERS: ATTEND Family Medicine
DX: R92.8 Other abnormal and inconclusive findings on diagnostic imaging of breast (principal)

== ENCOUNTER → 2020-08-04 | Outpatient (CLI) | payer MEDICARE, BC ==
--- NOTE | 2020-08-05 07:12 | BD ---
EXAMINATION TYPE: Axial Bone Density DATE OF EXAM: 08/04/2020 COMPARISON: NONE CLINICAL HISTORY: Postmenopausal female Height: 66 Weight: 146.7 FRAX RISK QUESTIONS: Alcohol (3 or more units per day): no Family History (Parent hip fracture): no Glucocorticoids (More than 3mos): no (Ex: prednisone, prednisolone, methylprednisolone, dexamethasone, and hydrocortisone). History of Fracture in Adulthood: no Secondary Osteoporosis: 1. Type 1 Diabetes: no 2. Hyperthyroidism: no 3. Menopause before 45: no 4. Malnutrition: no 5. Chronic liver disease: no Rheumatoid Arthritis: no Current Tobacco Use: no RISK FACTORS HISTORY OF: Surgery to Spine/Hip(right/left)/Wrist (right/left): no Family History of Osteoporosis: no Active: yes Diet low in dairy products/other sources of calcium: yes Postmenopausal woman: age 54 Lost more than 2 inches in height since high school: no MEDICATIONS: fenofibrate Additional History: EXAM MEASUREMENTS: Bone mineral densitometry was performed using the Hubkick System. Bone mineral density as measured about the Lumbar spine is: ----- L1-L4(G/cm2): 1.262 T Score Values are as follows: ----- L2: 0.4 ----- L3: 1.0 ----- L4: 1.3 ----- L1-L4: 0.7 Bone mineral density has: decreased -9.4 % since study of: 07.10.2011 Bone mineral density about the R hip (g/cm2): 0.962 Bone mineral density about the L hip (g/cm2): 1.041 T Score values are as follows: -----R Neck: -0.5 -----L Neck: 0.0 -----R Total: -0.2 -----L Total: 0.7 Bone mineral density has: decreased -4.2 % since study of: 07.10.2011 IMPRESSION: Normal (Values between +1 and -1 indicate normal bone mass). Consider repeating this study in 5 year s or sooner if there is some new clinical indication. NOTE: T-SCORE=SD OF THE YOUNG ADULT MEAN.
== END | disposition home or self-care (01) ==
LOC: RADBDWWP 16:09
PROVIDERS: ATTEND Family Medicine
DX: Z13.820 Encounter for screening for osteoporosis (principal); Z78.0 Asymptomatic menopausal state
CPT/HCPCS: 77080

== ENCOUNTER → 2020-09-17 | Outpatient (CLI) | payer MEDICARE, BC ==
--- NOTE | 2020-09-17 13:50 | USB ---
EXAMINATION TYPE: US breast limited RT DATE OF EXAM: 09/17/2020 COMPARISON: 03/05/2020, mammogram same date CLINICAL HISTORY: R92.8 abnormal and inconclusive findings. Findings: Targeted right breast ultrasound was performed from 4-8 o'clock and in the axillary tail. A cyst in the right breast at 4:00 measuring up to 0.5 cm is benign and unchanged. In the right breast at 8:00, there is a 0.3 x 0.3 x 0.3 cm hypoechoic ovoid lesion which likely repre sents a tiny cyst and is probably benign. This finding is unchanged since March 2020 and 6 month u ltrasound follow-up is recommended. IMPRESSION: 6 month ultrasound follow-up is recommended for the likely tiny complicated cyst in the right breast at 8:00. BI-RADS 3, probably benign.
--- NOTE | 2020-09-17 13:54 | MM ---
Reason for exam: additional evaluation requested from prior study. Last mammogram was performed 7 months ago. History: Patient is postmenopausal. Family history of breast cancer in maternal grandmother at age 80 and breast cancer in sister at age 46. Benign excisional biopsy of the left breast, May 13, 1999. Took estrogen for 1 year beginning at age 53. Took progesterone for 1 year beginning at age 53. Physical Findings: Nurse did not find any significant physical abnormalities on exam. MG 3D Diag Mammo W/Cad GABE Bilateral CC and MLO view(s) were taken. Prior study comparison: March 03, 2020, bilateral MG 3d screening mammo w/cad. February 19, 2019, bilateral MG screening mammo w CAD. There are scattered fibroglandular densities. There are no significant calcifications. Right breast asymmetry not changed. These results were verbally communicated with the patient and result sheet given to the patient on 09/17/20. ASSESSMENT: Incomplete: need additional imaging evaluation, BI-RAD 0 RECOMMENDATION: Ultrasound of the right breast.
== END | disposition home or self-care (01) ==
LOC: RADMAMWWP 12:47
PROVIDERS: ATTEND Family Medicine
DX: Z13.820 Encounter for screening for osteoporosis (principal); R92.8 Other abnormal and inconclusive findings on diagnostic imaging of breast
CPT/HCPCS: 77066; 76642; G0279; 77062

== ENCOUNTER → 2021-03-21 | Outpatient (CLI) | payer MEDICARE, BC ==
--- NOTE | 2021-03-21 10:05 | USB ---
Reason for exam: follow-up at short interval from prior study. History: Patient is postmenopausal. Family history of breast cancer in maternal grandmother at age 80 and breast cancer in sister at age 46. Benign excisional biopsy of the left breast, May 13, 1999. Took estrogen for 1 year beginning at age 53. Took progesterone for 1 year beginning at age 53. Physical Findings: Nurse did not find any significant physical abnormalities on exam. US Breast Limited RT Right limited breast ultrasound including focal area of concern, retroareolar and axilla demonstrates no cystic or solid lesion seen. These results were verbally communicated with the patient and result sheet given to the patient on 03/21/21. ASSESSMENT: Negative, BI-RAD 1 RECOMMENDATION: Routine screening mammogram of both breasts in 6 months. Back on schedule.
== END | disposition home or self-care (01) ==
LOC: RADUSWWP 09:00
PROVIDERS: ATTEND Family Medicine
DX: R92.8 Other abnormal and inconclusive findings on diagnostic imaging of breast (principal)

== ENCOUNTER → 2021-10-25 | Outpatient (CLI) | payer MEDICARE ==
--- NOTE | 2021-10-25 11:35 | MM ---
Reason for Exam: Additional evaluation requested from prior study. Last mammogram was performed 1 year(s) and 1 month(s) ago. Patient History: Menarche at age 13. First Full-Term at age 20. Postmenopausal. Estrogen, starting at age 53 for 1 year. Progesterone, starting at age 53 for 1 year. 05/13/1999, Benign Excisional Biopsy on the left side. Maternal grandmother had breast cancer, age 80. Sister had breast cancer, age 46. Sister had breast cancer at or over age 50. Risk Values: Caron 5 year model risk: 7.3%. NCI Lifetime model risk: 23.9%. Prior Study Comparison: 01/07/2016 Bilateral Screening Mammogram, [facility]. 01/31/2018 Bilateral Screening Mammogram, [facility]. 02/19/2019 Bilateral Screening Mammogram, [facility]. 03/03/2020 Bilateral Screening Mammogram, [facility]. 09/17/2020 Bilateral Diagnostic Mammogram, [facility]. Tissue Density: The breast tissue is heterogeneously dense. This may lower the sensitivity of mammography. Findings: Analyzed By CAD. Benign-appearing calcifications with chronic nodularity stable. Overall Assessment: Benign, BI-RAD 2 Management: Screening Mammogram of both breasts in 1 year. A clinical breast exam by your physician is recommended on an annual basis and results should be correlated with mammographic findings. This exam should not preclude additional follow-up of suspicious palpable abnormalities. Results were given to the patient verbally at the time of exam. Electronically signed and approved by: David Thompson M.D. Radiologis
== END | disposition home or self-care (01) ==
LOC: RADMAMWWP 10:46
PROVIDERS: ATTEND Family Medicine
DX: R92.8 Other abnormal and inconclusive findings on diagnostic imaging of breast (principal)
CPT/HCPCS: 77066; G0279; 77062

== ENCOUNTER 2021-11-09 06:39 | Day surgery (SDC) | payer BC, MEDICARE ==
[2021-11-08 09:01] VITALS: BMI 24.2
--- NOTE | 2021-11-09 06:15 | P.GSHP ---
History of Present Illness H&P Date: 11/09/21 CHIEF COMPLAINT: Colon screen HISTORY OF PRESENT ILLNESS: The patient is a 66-year-old female who presents for colon screen. Lower endoscopy was offered for further evaluation and management. PAST MEDICAL HISTORY: Please see list. PAST SURGICAL HISTORY: Please see list. MEDICATIONS: Please see list. ALLERGIES: Please see list. SOCIAL HISTORY: No illicit drug use FAMILY HISTORY: No reports of Crohn disease or ulcerative colitis. REVIEW OF ORGAN SYSTEMS: CONSTITUTIONAL: No reports of fevers or chills. PHYSICAL EXAM: VITAL SIGNS: Stable GENERAL: Well-developed pleasant in no acute distress. HEENT: No scleral icterus. Extraocular movements grossly intact. Moist buccal mucosa. NECK: Supple without lymphadenopathy. CHEST: Unlabored respirations. Equal bilateral excursions. CARDIOVASCULAR: Regular rate and rhythm. Distal 2+ pulses. ABDOMEN: Soft, nontender, nondistended. MUSCULOSKELETAL: No clubbing, cyanosis, or edema. ASSESSMENT: 1. Colon screen. PLAN: 1. Recommend proceeding with a lower endoscopy Past Medical History Past Medical History: Hyperlipidemia Additional Past Medical History / Comment(s): CYST ON RIGHT FOOT, PAINFUL TO WALK. History of Any Multi-Drug Resistant Organisms: None Reported Past Surgical History: Cholecystectomy, Orthopedic Surgery, Tonsillectomy, Tubal Ligation Additional Past Surgical History / Comment(s): CYSTS REMOVED FROM BOTH FEET IN THE PAST. LASER EYE SURGERY (BEGINNINGS OF GLAUCOMA). Past Anesthesia/Blood Transfusion Reactions: No Reported Reaction Past Psychological History: No Psychological Hx Reported Smoking Status: Never smoker Past Alcohol Use History: Occasional Past Drug Use History: None Reported - Past Family History Son(s) Family Medical History: Deep Vein Thrombosis (DVT) Sister(s) Family Medical History: Cancer Medications and Allergies Home Medications Medication Instructions Recorded Confirmed Type Biotin 10 mg PO DAILY 07/29/18 11/08/21 History Calcium Carbonate [Calcium] 1,200 mg PO DAILY 07/29/18 11/08/21 History Fenofibrate Nanocrystallized 145 mg PO DAILY 07/29/18 11/08/21 History [Fenofibrate] Multivitamins, Thera [Multivitamin 1 tab PO DAILY 07/29/18 11/08/21 History (formulary)] Allergies Allergy/AdvReac Type Severity Reaction Status Date / Time No Known Allergies Allergy Verified 11/08/21 08:49
[~2021-11-09 06:39] MED LIST changes: -DEXAMETHASONE SOD PHOSPHATE 10 MG/ML 1 ML VIAL IV ONE; -HYDROmorphone 0.5 MG/0.5 ML SYRINGE IVP PRN; -LIDOCAINE 1% 20 ML VIAL (10MG/ML) FOR IV START INTRADERMA PRN; -MIDAZOLAM 2 MG/2 ML VIAL IV PRN; -ONDANSETRON 4 MG/2 ML VIAL IVP ONE; -Pre Op ABX Message 1 EACH MISC MISCELLANE ONE; -SCOPOLAMINE 1.5MG/72HR PATCH TRANSDERM ONE; -fentaNYL (PF) 50 MCG/ML 2 ML AMP IVP PRN
[2021-11-09 07:17] VITALS: TEMP 97.7
[2021-11-09] MEDS ORDERED: PROPOFOL 10 MG/ML 20 ML VIAL IV ONE (07:30)
[2021-11-09] MEDS ORDERED: LIDOCAINE 2% INJ 20 MG/ML (2 ML VIAL) ONE (07:30)
--- NOTE | 2021-11-09 08:04 | P.PCN ---
Date of Procedure: 11/09/21 Description of Procedure: PREOPERATIVE DIAGNOSIS: Colonoscopy screening POSTOPERATIVE DIAGNOSIS: Tubular adenoma sigmoid colon Tubular adenoma transverse colon Tubular adenoma descending colon Pandiverticulosis Sigmoid diverticulosis Internal hemorrhoids, grade 2 OPERATION: Colonoscopy to the ileocecal valve and appendiceal orifice, cecum Colonoscopy with hot snare polypectomy Colonoscopy with cold forceps biopsy SURGEON: Ernestina Chung MD. ANESTHESIA: MAC. INDICATIONS: The patient is an 66-year-old male who presents for colonoscopy screening. Benefits and risks were described and informed consent was obtained. DESCRIPTION OF PROCEDURE: The patient had undergone Sutab prep. The patient had been brought into the operating room and laid in the left lateral decubitus position. After adequate intravenous sedation, the rectum was examined with 2% lidocaine jelly. The prostate was unremarkable. External hemorrhoids were encountered. The rectal tone was within normal limits. No lesions were palpated in the rectal vault. An Olympus colonoscope was advanced until the cecum, ileocecal valve and appendiceal orifice were clearly viewed. The prep was excellent. Sigmoid diverticulosis was encountered. Colonic polyps were found and removed. No evidence of focal colitis was found. Retroflexion of the scope demonstrated grade 2 internal hemorrhoids without active bleeding or inflammation. The colon was desufflated. The patient had tolerated the procedure well. Withdrawal time was over 6 minutes. FINDINGS: Aronchick preparation quality scale 1 (1-5) Internal hemorrhoids, grade 2 External hemorrhoids, grade 1. No arteriovenous malformations. Sigmoid diverticulosis Pandiverticulosis Removal of 5 polyps: - Snare polypectomy mid transverse colon, 8 mm flat villous adenoma. - Snare polypectomy 30 cm from the anal verge, 4 t5 mm tubular adenoma, descending colon - Cold forceps biopsy at 20 x 2 cm from the anal verge, 4 mm polyp, sigmoid colon - Cold forceps biopsy at 15 cm from the anal verge, 5 mm polyp. No focal colitis. RECOMMENDATIONS: Repeat colonoscopy in 3 years, 2024 Plan - Discharge Summary Discharge Rx Participant: No New Discharge Prescriptions: Continue Multivitamins, Thera [Multivitamin (formulary)] 1 tab PO DAILY Fenofibrate Nanocrystallized [Fenofibrate] 145 mg PO DAILY Calcium Carbonate [Calcium] 1,200 mg PO DAILY Biotin 10 mg PO DAILY Discharge Medication List Biotin 10 mg PO DAILY 07/29/18 [History] Calcium Carbonate [Calcium] 1,200 mg PO DAILY 07/29/18 [History] Fenofibrate Nanocrystallized [Fenofibrate] 145 mg PO DAILY 07/29/18 [History] Multivitamins, Thera [Multivitamin (formulary)] 1 tab PO DAILY 07/29/18 [History] Follow up Appointment(s)/Referral(s): Ernestina Chung MD [STAFF PHYSICIAN] - As Needed Patient Instructions/Handouts: Diverticulosis (DC), Colorectal Polyps (GEN), Diverticulosis Diet (GEN) Discharge Disposition: HOME SELF-CARE
[2021-11-09 08:08] VITALS: RESP 17
[2021-11-09 08:28] VITALS: BP 115/73; PULSE 69
== END 2021-11-09 09:15 | disposition home or self-care (01) ==
LOC: ORWHC2ENDO 06:39
PROVIDERS: ATTEND Surgery Plastic and Reconstructive Surgery
DX: Z12.11 Encounter for screening for malignant neoplasm of colon (principal); K63.5 Polyp of colon; K57.30 Diverticulosis of large intestine without perforation or abscess without bleeding; K64.1 Second degree hemorrhoids; K64.4 Residual hemorrhoidal skin tags; E78.5 Hyperlipidemia, unspecified; L72.8 Other follicular cysts of the skin and subcutaneous tissue; Z90.49 Acquired absence of other specified parts of digestive tract; Z98.51 Tubal ligation status; H40.9 Unspecified glaucoma; Z82.49 Family history of ischemic heart disease and other diseases of the circulatory system; Z80.9 Family history of malignant neoplasm, unspecified
CPT/HCPCS: 88305; 45380; 45385; J2704; J2001

== ENCOUNTER → 2022-10-26 | Outpatient (CLI) | payer MEDICARE ==
--- NOTE | 2022-10-27 19:24 | MM ---
Reason for Exam: Screening (asymptomatic). Last screening mammogram was performed 12 month(s) ago. Patient History: Menarche at age 13. First Full-Term at age 20. Postmenopausal. Estrogen, starting at age 53 for 1 year. Progesterone, starting at age 53 for 1 year. 05/13/1999, Benign Excisional Biopsy on the left side. Maternal grandmother had breast cancer, age 80. Sister had breast cancer, age 46. Sister had breast cancer at or over age 50. Risk Values: Caron 5 year model risk: 7.3%. NCI Lifetime model risk: 23.1%. Prior Study Comparison: 03/03/2020 Bilateral Screening Mammogram, [facility]. 09/17/2020 Bilateral Diagnostic Mammogram, [facility]. 10/25/2021 Bilateral MG 3D diag mammo w/cad GABE, [facility]. Tissue Density: There are scattered fibroglandular densities. Findings: Analyzed By CAD. Chronic nodularity on the right. There is no suspicious group of microcalcifications or new suspicious mass in either breast. Overall Assessment: Benign, BI-RAD 2 Management: Screening Mammogram of both breasts in 1 year. See note below in regards to patient's increased five-year Caron score and lifetime risk score. Patient should continue monthly self-breast exams. A clinical breast exam by your physician is recommended on an annual basis. This exam should not preclude additional follow-up of suspicious palpable abnormalities. Note on Caron scores and lifetime risk: 1. A Caron score greater than 3% is considered moderate risk. If this is the case, consider specialist referral to assess eligibility for a risk reducing agent. 2. If overall lifetime risk for the development of breast cancer is 20% or higher, the patient may qualify for future screening with alternating mammogram and breast MRI. Electronically signed and approved by: Nelson Walter M.D. Radiologist
== END | disposition home or self-care (01) ==
LOC: RADMAMWWP 13:07
PROVIDERS: ATTEND Family Medicine
DX: Z12.31 Encounter for screening mammogram for malignant neoplasm of breast (principal); Z78.0 Asymptomatic menopausal state; Z80.3 Family history of malignant neoplasm of breast
CPT/HCPCS: 77063; 77067

== ENCOUNTER → 2022-12-13 | Outpatient (CLI) | payer MEDICARE ==
--- NOTE | 2022-12-13 13:14 | US ---
EXAMINATION TYPE: US groin RT DATE OF EXAM: 12/13/2022 COMPARISON: NONE CLINICAL INDICATION: Female, 67 years old with history of R10.2 injuinal pain, pelvic pain; Pain bila teral groin, worse on the left TECHNIQUE: FINDINGS: Scanned bilateral groin, no discrete abnormality by ultrasound at this time IMPRESSION: 1. Negative right inguinal region. Follow-up can be performed as clinically indicated.
--- NOTE | 2022-12-13 13:15 | US ---
EXAMINATION TYPE: US groin LT DATE OF EXAM: 12/13/2022 COMPARISON: NONE CLINICAL INDICATION: Female, 67 years old with history of R10.2 PELVIC AND PERINEAL PAIN; Pain bilate ral groin, worse on the left TECHNIQUE: FINDINGS: Scanned bilateral groin, no discrete abnormality by ultrasound at this time No suspicious adenopathy. No suspicious hernia. Images of both left and right inguinal regions are included with this set. IMPRESSION: 1. Negative imaging through the left inguinal region.
== END | disposition home or self-care (01) ==
LOC: RADUSWWP 12:07
PROVIDERS: ATTEND Family Medicine
DX: R10.2 Pelvic and perineal pain (principal)

== ENCOUNTER → 2023-10-29 | Outpatient (CLI) | payer MEDICARE ==
--- NOTE | 2023-10-30 10:34 | MM ---
Reason for Exam: Screening (asymptomatic). Last screening mammogram was performed 12 month(s) ago. Patient History: Menarche at age 13. First Full-Term at age 20. Postmenopausal. Estrogen, starting at age 53 for 1 year. Progesterone, starting at age 53 for 1 year. 05/13/1999, Benign Excisional Biopsy on the left side. Maternal grandmother had breast cancer, age 80. Sister had breast cancer, age 46. Sister had breast cancer at or over age 50. Risk Values: Caron 5 year model risk: 7.4%. NCI Lifetime model risk: 22.2%. Prior Study Comparison: 01/24/2017 Bilateral Screening Mammogram, [facility]. 01/31/2018 Bilateral Screening Mammogram, [facility]. 02/19/2019 Bilateral Screening Mammogram, [facility]. 03/03/2020 Bilateral Screening Mammogram, [facility]. 09/17/2020 Bilateral Diagnostic Mammogram, [facility]. 10/25/2021 Bilateral MG 3D diag mammo w/cad GABE, [facility]. 10/26/2022 Bilateral MG 3D screening mammo w/cad, [facility]. Tissue Density: The breasts are heterogeneously dense, which may obscure small masses. Findings: Analyzed By CAD. There is no suspicious group of microcalcifications or new suspicious mass in either breast. Overall Assessment: Benign, BI-RAD 2 Management: Screening Mammogram of both breasts in 1 year. . Patient should continue monthly self-breast exams. A clinical breast exam by your physician is recommended on an annual basis. This exam should not preclude additional follow-up of suspicious palpable abnormalities. Note on Caron scores and lifetime risk: 1. A Caron score greater than 3% is considered moderate risk. If this is the case, consider specialist referral to assess eligibility for a risk reducing agent. 2. If overall lifetime risk for the development of breast cancer is 20% or higher, the patient may qualify for future screening with alternating mammogram and breast MRI. Electronically signed and approved by: Ras Mckeon M.D. Radiologis
== END | disposition home or self-care (01) ==
LOC: RADMAMWWP 10:05
PROVIDERS: ATTEND Family Medicine
DX: Z12.31 Encounter for screening mammogram for malignant neoplasm of breast (principal); R92.333 Mammographic heterogeneous density, bilateral breasts; Z78.0 Asymptomatic menopausal state; Z80.3 Family history of malignant neoplasm of breast
CPT/HCPCS: 77063; 77067

== ENCOUNTER → 2024-02-18 | Outpatient (CLI) | payer MEDICARE ==
--- NOTE | 2024-02-18 14:07 | XR ---
EXAMINATION TYPE: XR foot complete bilateral DATE OF EXAM: 02/18/2024 1:47 PM COMPARISON: None CLINICAL INDICATION: Female, 68 years old with history of M79.671, M79.672; [facility] TECHNIQUE: XR foot complete bilateral FINDINGS: No evidence of any acute osseous pathology of either foot. Mild multifocal degeneration changes throu ghout the joints of the foot with osteophyte formation and joint space narrowing. 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 Appropriate arterial and the feet bilaterally and weightbearing images bilaterally. Accessory ossicle near the fifth metatarsal on the left. No evidence of fracture. IMPRESSION: * No evidence of acute fracture. * Mild multifocal degeneration changes throughout the joints of the foot. * Normal arches of the feet. [facility], , 02/18/2024 2:05 PM
== END | disposition home or self-care (01) ==
LOC: RADXRMAIN 13:18
PROVIDERS: ATTEND Podiatrist Foot & Ankle Surgery
DX: M25.775 Osteophyte, left foot (principal); M25.774 Osteophyte, right foot

== ENCOUNTER 2024-10-02 09:18 | Day surgery (SDC) | payer MEDICARE ==
--- NOTE | 2024-10-02 07:34 | P.GSHP ---
History of Present Illness H&P Date: 10/02/24 CHIEF COMPLAINT: Dysphagia and colon screen HISTORY OF PRESENT ILLNESS: The patient is a 68-year-old female who presents with dysphagia, gastroesophageal reflux disease and need for colon screen. Upper and lower endoscopy were offered for further evaluation and management. PAST MEDICAL HISTORY: Please see list. PAST SURGICAL HISTORY: Please see list. MEDICATIONS: Please see list. ALLERGIES: Please see list. SOCIAL HISTORY: No illicit drug use FAMILY HISTORY: No reports of Crohn disease or ulcerative colitis. REVIEW OF ORGAN SYSTEMS: CONSTITUTIONAL: No reports of fevers or chills. GI: Denies any blood in stools or constipation. PHYSICAL EXAM: VITAL SIGNS: Stable GENERAL: Well-developed pleasant in no acute distress. HEENT: No scleral icterus. Extraocular movements grossly intact. Moist buccal mucosa. NECK: Supple without lymphadenopathy. CHEST: Unlabored respirations. Equal bilateral excursions. CARDIOVASCULAR: Regular rate and rhythm. Distal 2+ pulses. ABDOMEN: Soft, nondistended. MUSCULOSKELETAL: No clubbing, cyanosis, or edema. ASSESSMENT: 1. Dysphagia and gastroesophageal reflux disease 2. Colon screen. PLAN: 1. Recommend proceeding with an upper and lower endoscopy Past Medical History Past Medical History: GERD/Reflux, Hyperlipidemia Additional Past Medical History / Comment(s): hx. colon polyps History of Any Multi-Drug Resistant Organisms: None Reported Past Surgical History: Cholecystectomy, Joint Replacement, Orthopedic Surgery, Tonsillectomy, Tubal Ligation Additional Past Surgical History / Comment(s): CYSTS REMOVED FROM BOTH FEET IN THE PAST. LASER EYE SURGERY ([facility] OF [place]UCOM[place]). left hip replaced Past Anesthesia/Blood Transfusion Reactions: No Reported Reaction Smoking Status: Never smoker - Past Family History Son(s) Family Medical History: Deep Vein Thrombosis (DVT) Sister(s) Family Medical History: Cancer Medications and Allergies Home Medications Medication Instructions Recorded Confirmed Type Biotin 10 mg PO DAILY 07/29/18 09/30/24 History Calcium Carbonate [Calcium] 1,200 mg PO DAILY 07/29/18 09/30/24 History Fenofibrate Nanocrystallized 160 mg PO DAILY 07/29/18 09/30/24 History [Fenofibrate] Multivitamins, Thera [Multivitamin 1 tab PO DAILY 07/29/18 09/30/24 History (formulary)] Allergies Allergy/AdvReac Type Severity Reaction Status Date / Time No Known Allergies Allergy Verified 09/30/24 15:45
[~2024-10-02 09:18] MED LIST changes: +LIDOCAINE 1% (10MG/ML) FOR IV START INTRADERMA PRN
[2024-10-02] MEDS: IV FLUID CONTINUATION 1,000 ML IV ONE (09:33)
[2024-10-02 09:42] VITALS: RESP 16; TEMP 97.9
[2024-10-02] MEDS ORDERED: PROPOFOL 10 MG/ML 20 ML VIAL IV ONE (10:12)
--- NOTE | 2024-10-02 10:55 | P.PCN ---
Date of Procedure: 10/02/24 Description of Procedure: PREOPERATIVE DIAGNOSIS: Gastroesophageal reflux disease. Dysphagia POSTOPERATIVE DIAGNOSIS: Gastroesophageal reflux disease. Gastritis. OPERATION: Esophagogastroduodenoscopy with cold forceps biopsies along esophagus, antrum and duodenum SURGEON: Ernestina Chung MD ANESTHESIA: MAC. INDICATIONS: The patient is a 68-year-old female who presents with dysphagia and reflux disease. Benefits and risks of the procedure were described. Informed consent was obtained. DESCRIPTION: The patient was brought into the endoscopy suite and laid in the left lateral decubitus position. An Olympus gastroscope was passed along the posterior oropharynx down to the distal esophagus where the squamocolumnar junction was encountered at 40 cm from the incisors. The stomach was entered and no bile reflux was found. Additional findings are listed below. Biopsies with cold forceps were obtained of the antrum. The first through third portion of the duodenum was examined. Retroflexion of the scope confirmed Hill grade 2 lower esophageal valve. The squamocolumnar junction demonstrated LA grade B erosive esophagitis. The stomach was desufflated. The patient tolerated the procedure well. FINDINGS: Squamocolumnar junction 40 cm from the incisors. Diaphragmatic hiatus at 40 cm. Hill grade 2 lower esophageal valve. LA grade B erosive esophagitis. Biopsies obtained Biopsies obtained of the duodenum. Chronic gastritis with biopsies obtained. RECOMMENDATIONS: Upper endoscopy as needed.
[2024-10-02 11:02] VITALS: BP 119/67; PULSE 71
--- NOTE | 2024-10-02 11:02 | P.PCN ---
Date of Procedure: 10/02/24 Description of Procedure: PREOPERATIVE DIAGNOSIS: Personal history of colon polyps Colonoscopy screening POSTOPERATIVE DIAGNOSIS: Tubular adenoma rectum Sigmoid diverticulosis with partial large bowel obstruction Internal hemorrhoids, grade 3 OPERATION: Colonoscopy to the ileocecal valve and appendiceal orifice, cecum Colonoscopy with cold forceps biopsy SURGEON: Ernestina Chung MD. ANESTHESIA: MAC. INDICATIONS: The patient is an 68-year-old male who presents personal history of colon polyps . Last colonoscopy 5 years. Benefits and risks were described and informed consent was obtained. DESCRIPTION OF PROCEDURE: The patient had undergone Suprep. The patient had been brought into the o perating room and laid in the left lateral decubitus position. After adequate intravenous sedation, the rectum was examined with 2% lidocaine jelly. The prostate was unremarkable. External hemorrhoids were encountered. The rectal tone was within normal limits. No lesions were palpated in the rectal vault. An Olympus colonoscope was exchanged to a pediatric colonoscope due to partial large bowel obstruction. The pediatric scope was navigated and advanced until the cecum, ileocecal valve and appendiceal orifice were clearly viewed. The prep was good. Sigmoid diverticulosis was encountered. Colonic polyps were found and removed. No evidence of focal colitis was found. Retroflexion of the scope demonstrated grade 3 internal hemorrhoids without active bleeding or inflammation. The colon was desufflated. The patient had tolerated the procedure well. Withdrawal time was over 6 minutes. FINDINGS: Aronchick preparation quality scale 2+ (1-5) Internal hemorrhoids, grade 3 External hemorrhoids, grade 3. No arteriovenous malformations. Sigmoid diverticulosis with partial large bowel obstruction requiring exchange to pediatric colonoscope Removal of 2 polyps: - Cold forceps biopsy at rectum x 2, 4 mm adenoma No focal colitis. RECOMMENDATIONS: Repeat colonoscopy in 3 years, 2027 Recommend partial colectomy due to partial large bowel obstruction Plan - Discharge Summary Discharge Rx Participant: No New Discharge Prescriptions: Continue Multivitamins, Thera [Multivitamin (formulary)] 1 tab PO DAILY Fenofibrate Nanocrystallized [Fenofibrate] 160 mg PO DAILY Calcium Carbonate [Calcium] 1,200 mg PO DAILY Biotin 10 mg PO DAILY Discharge Medication List Biotin 10 mg PO DAILY 07/29/18 [History] Calcium Carbonate [Calcium] 1,200 mg PO DAILY 07/29/18 [History] Fenofibrate Nanocrystallized [Fenofibrate] 160 mg PO DAILY 07/29/18 [History] Multivitamins, Thera [Multivitamin (formulary)] 1 tab PO DAILY 07/29/18 [History] Follow up Appointment(s)/Referral(s): Ernestina Chung MD [STAFF PHYSICIAN] - 10/21/24 10:00 am Patient Instructions/Handouts: *Surgery [facility] - (Anesthesia) Discharge Instructions Outpatient Surgery, Gastritis (DC), Colorectal Polyps (GEN), Diverticulosis Diet (GEN) Activity/Diet/Wound Care/Special Instructions: Repeat colonoscopy 3 years, 2027 Discharge Disposition: HOME SELF-CARE
== END 2024-10-02 11:37 | disposition home or self-care (01) ==
LOC: ORWHC2ENDO 09:18
PROVIDERS: ATTEND Surgery Plastic and Reconstructive Surgery
DX: Z12.11 Encounter for screening for malignant neoplasm of colon (principal); K29.50 Unspecified chronic gastritis without bleeding; D12.8 Benign neoplasm of rectum; K31.A11 Gastric intestinal metaplasia without dysplasia, involving the antrum; K21.00 Gastro-esophageal reflux disease with esophagitis, without bleeding; K57.30 Diverticulosis of large intestine without perforation or abscess without bleeding; K64.2 Third degree hemorrhoids; E78.5 Hyperlipidemia, unspecified; Z90.89 Acquired absence of other organs; Z98.51 Tubal ligation status; Z90.49 Acquired absence of other specified parts of digestive tract; Z79.899 Other long term (current) drug therapy
CPT/HCPCS: 88305; 88342; 45380; 43239; J2704

== ENCOUNTER → 2024-10-31 | Outpatient (CLI) | payer MEDICARE ==
--- NOTE | 2024-10-31 20:20 | MM ---
Reason for Exam: Screening (asymptomatic). Last mammogram was performed 1 year(s) and 1 month(s) ago. Patient History: Menarche at age 13. First Full-Term at age 20. Postmenopausal. Estrogen, starting at age 53 for 1 year. Progesterone, starting at age 53 for 1 year. 05/13/1999, Benign Excisional Biopsy on the left side. Maternal grandmother had breast cancer, age 80. Sister had breast cancer, age 46. Sister had breast cancer at or over age 50. Risk Values: Fabby 5 year model risk: 7.5%. NCI Lifetime model risk: 20.4%. Prior Study Comparison: 10/25/2021 Bilateral MG 3D diag mammo w/cad GABE, [facility]. 10/26/2022 Bilateral MG 3D screening mammo w/cad, [facility]. 10/29/2023 Bilateral MG 3D screening mammo w/cad, [facility]. Tissue Density: There are scattered areas of fibroglandular density. Findings: Analyzed By CAD. Chronic nodularity on the right. There is no suspicious group of microcalcifications or new suspicious mass in either breast. Overall Assessment: Benign, BI-RAD 2 Management: Screening Mammogram of both breasts in 1 year. SEE NOTE BELOW IN REGARDS TO THE PATIENT'S INCREASED 5 YEAR FABBY SCORE AND INCREASED LIFETIME RISK SCORE. Patient should continue monthly self-breast exams. A clinical breast exam by your physician is recommended on an annual basis. This exam should not preclude additional follow-up of suspicious palpable abnormalities. Note on Fabby scores and lifetime risk: 1. A Fabby score greater than 3% is considered moderate risk. If this is the case, consider specialist referral to assess eligibility for a risk reducing agent. 2. If overall lifetime risk for the development of breast cancer is 20% or higher, the patient may qualify for future screening with alternating mammogram and breast MRI. [facility], , 10/31/2024 8:17 PM. Electronically signed and approved by: Nelson Walter M.D. Radiologist
== END | disposition home or self-care (01) ==
LOC: RADMAMWWP 13:22
PROVIDERS: ATTEND Family Medicine
DX: Z12.31 Encounter for screening mammogram for malignant neoplasm of breast (principal); R92.323 Mammographic fibroglandular density, bilateral breasts; Z78.0 Asymptomatic menopausal state; Z80.3 Family history of malignant neoplasm of breast
CPT/HCPCS: 77063; 77067